=== PATIENT | female | born 1950 | race Caucasian/White ===

== ENCOUNTER → 2016-10-07 | Outpatient (CLI) | payer MEDICARE, OTHER ==
[~2016-10-07] MED LIST: CETI10CA PO; FLUT16SP22 NSEACH; GUAI177L6 PO; HYDR1TAB PO; LEVO88TA26 PO; LISI1TAB PO; LISINOPRIL; MNTL10T PO; RT-ALBUINH IH; SYNTHROID
--- NOTE | 2016-10-07 12:04 | Diagnostic Imaging Report ---
PROCEDURE: CT abdomen and pelvis without contrast. TECHNIQUE: Multiple contiguous axial images were obtained through the abdomen and pelvis without the use of intravenous contrast. INDICATION: Right lower quadrant pain. FINDINGS: The lung bases appear clear. The liver, the gallbladder, the pancreas, and adrenals appear unremarkable. There is no hydronephrosis in either kidney. No urinary tract stone is seen. There is suggestion of prior hysterectomy. Correlate with surgical history. There is diverticulosis. No diverticulitis. There is an adnexal cystic lesion measuring 6.5 x 4.6 x 6.3 cm. It has well defined margins with no obvious solid component although this would be better evaluated with ultrasound or an enhanced exam. There is evidence of prior ventral hernia repair. There is diastases of the recti with abdominal wall laxity noted. The abdominal aorta is normal in caliber. No para-aortic significantly enlarged lymph node is seen. No significant free fluid or fluid collection in the abdomen or pelvis noted. Osseous structures demonstrate mild degenerative changes of the SI joints. IMPRESSION: 1. Diverticulosis. No diverticulitis. 2. Diastasis of the recti with abdominal wall laxity. 3. A 6.5 cm left adnexal lesion with fluid attenuation and no obvious solid component. Further evaluation with pelvic ultrasound is recommended. This may relate to a simple cyst or low-grade cystic neoplasm of the left ovary. Dictated by: Dictated on workstation # [id number]
== END ==
LOC: RAD 09:59
PROVIDERS: ATTEND Family Medicine
DX: R10.31 Right lower quadrant pain (principal); R10.32 Left lower quadrant pain
CPT/HCPCS: 74176

== ENCOUNTER → 2016-10-15 | Outpatient (CLI) | payer MEDICARE, OTHER ==
--- NOTE | 2016-10-15 19:23 | Diagnostic Imaging Report ---
EXAMINATION: Transabdominal and transvaginal pelvic ultrasound. INDICATION: Left adnexal cystic mass. FINDINGS: The uterus has been surgically removed. The left adnexa demonstrates a simple-appearing cystic lesion measuring 6.5 x 5.1 x 6.3 cm with no solid component seen. No definitive ovarian tissue is identified. This could be arising from the left ovary or other left pelvic structures. The right ovary is obscured by bowel gas. IMPRESSION: A 6.5 cm simple-appearing adnexal cystic lesion with no solid component identified. Followup ultrasound in six months is recommended to ensure stability. Dictated by: Dictated on workstation # [id number]
== END ==
LOC: RAD 14:35
PROVIDERS: ATTEND Family Medicine
DX: N83.202 Unspecified ovarian cyst, left side (principal)
CPT/HCPCS: 76830; 76856

== ENCOUNTER → 2016-10-21 | Outpatient (CLI) | payer MEDICARE, OTHER ==
--- NOTE | 2016-10-21 12:11 | Diagnostic Imaging Report ---
INDICATION: Low back pain. Lumbar spine FINDINGS: AP and lateral views of lumbar spine show normal vertebral body height and alignment. There is very slight retrolisthesis of L1 on L2 and L2 on L3. There are no compression fractures. IMPRESSION: Minimal degenerative changes in the lumbar spine. No acute abnormalities seen. Dictated by: Dictated on workstation # [id number]
== END ==
LOC: RAD 11:29
PROVIDERS: ATTEND Family Medicine
DX: M54.5 Low back pain (principal)
CPT/HCPCS: 72100

== ENCOUNTER → 2017-01-14 | Outpatient (CLI) | payer MEDICARE, OTHER ==
--- NOTE | 2017-01-14 19:22 | Diagnostic Imaging Report ---
Transabdominal and transvaginal pelvic ultrasound. INDICATION: Left pelvic pain. FINDINGS: The uterus has been surgically removed. There is normal appearance of the urinary bladder. Previously seen left adnexal cyst is not demonstrated at this time, potentially removed or obscured by bowel loops. IMPRESSION: The previously seen cystic lesion in the left adnexa is not visualized. It is possibly resolved or obscured by overlying bowel gas. Dictated by: Dictated on workstation # [id number]
== END ==
LOC: RAD 11:13
PROVIDERS: ATTEND Obstetrics & Gynecology
DX: R10.2 Pelvic and perineal pain (principal)
CPT/HCPCS: 76830; 76856

== ENCOUNTER → 2017-01-25 | Outpatient (CLI) | payer MEDICARE, OTHER ==
--- NOTE | 2017-01-25 17:34 | Diagnostic Imaging Report ---
US NON OB PELVIS COMP/TRANSVAG TECHNIQUE: Transabdominal and transvaginal grayscale, color Doppler and pulse duplex imaging of the pelvis was performed. INDICATION: Surveillance of left adnexal cyst. COMPARISON: 01/14/2017 and 10/15/2016. FINDINGS: Status post hysterectomy. Right ovary is not visualized due to obscuration of surrounding bowel gas. There is a well-circumscribed predominantly anechoic cyst in the left adnexa which measures 6.3 x 5.2 x 5.6 cm. This is not significantly changed since ultrasound of 10/15/2016. Due to surrounding bowel gas, it is difficult to fully ascertain if this cystic lesion is purely cystic or may have a few low-level internal echoes. IMPRESSION: 1. Stable size of left adnexal cystic mass measuring up to 6.3 cm. Given patient's age, this may represent a serous cystadenoma or other benign cyst. Dictated by: Dictated on workstation # [id number]
== END ==
LOC: RAD 16:47
PROVIDERS: ATTEND Obstetrics & Gynecology
DX: N83.202 Unspecified ovarian cyst, left side (principal)
CPT/HCPCS: 76830; 76856

== ENCOUNTER 2017-02-11 10:09 | Outpatient (RCR) | payer MEDICARE, OTHER | END 2017-03-17 09:21 | disposition home or self-care (01) | DX: M25.559 Pain in unspecified hip (principal) ==

== ENCOUNTER → 2017-06-28 | Outpatient (CLI) | payer MEDICARE, OTHER ==
--- NOTE | 2017-06-28 11:29 | Diagnostic Imaging Report ---
Transabdominal and transvaginal pelvic ultrasound. INDICATION: Followup left adnexal cystic mass. COMPARISON: 01/25/2017. FINDINGS: There is a 5.7 x 4.6 x 4.6-cm left adnexal cystic lesion seen which appears to have no internal vascularity with color Doppler and no significant rotation or solid component. The margins are lobulated. It is not seen transvaginally at this time, due to bowel gas obscuring it. This is probably arising from the left ovary although the left ovary itself is not seen. The right ovary is not seen. The hysterectomy bed demonstrates no definite abnormality. When compared to 01/25/2017, it is slightly smaller compared to prior measurements. IMPRESSION: Left adnexal cystic lesion measuring 5.7 cm minimally smaller compared to the previous exam. Dictated by: Dictated on workstation # [id number]
== END ==
LOC: RAD 09:54
PROVIDERS: ATTEND Obstetrics & Gynecology
DX: N85.8 Other specified noninflammatory disorders of uterus (principal)
CPT/HCPCS: 76830; 76856

== ENCOUNTER 2018-01-07 06:50 | Day surgery (SDC) | payer MEDICARE, OTHER ==
[~2018-01-07] VITALS: Ht 154.9 cm; Wt 90.7 kg
[~2018-01-07 06:50] MED LIST changes: +CETI10TA17 PO; +GARL100T PO; +LEVO88TA54 PO; +LISI1TAB8 PO; +MONT10TA24 PO; +OMEG1CAP58 PO; +POTA10CA68 PO
[2018-01-07 07:05] VITALS: BP 128/84
[2018-01-07] MEDS: PHENYLEPHRINE 10% OPHTH (NEO-SYN) 5 ML BTL OU PRN ×3 (07:06→07:13)
[2018-01-07] MEDS: TETRACAINE 0.5% OPHTH SOLN 4 ML BTL (SINGLE DOSE ONLY) OU PRN ×3 (07:06→07:13)
[2018-01-07] MEDS: TROPICAMIDE 1% OPH SOLN (MYDRIACYL) 15 ML BTL OU PRN ×3 (07:06→07:13)
[2018-01-07 08:05] VITALS: BP 128/84
--- NOTE | 2018-01-07 08:26 | Ophthalmologist Pre-Op Note ---
Pre-Operative Progress Note H&P Reviewed The H&P was reviewed, patient examined and no changes noted. Date H&P Reviewed: Jan 07, 2018 Time H&P Reviewed: 07:30 Pre-Op Dx Secondary Cataract, Right Eye ESTRELLA JAY MD Jan 07, 2018 08:26
--- NOTE | 2018-01-07 08:27 | Ophthalmology Operative Report ---
YAG Capsulotomy PREOPERATIVE DIAGNOSIS: Secondary Cataract Right Eye POSTOPERATIVE DIAGNOSIS: Secondary Cataract Right Eye PROCEDURE: YAG Capsulotomy, right eye SURGEON: Bolivar Jay ANESTHESIA: Topical anesthesia COMPLICATIONS: None ESTIMATED BLOOD LOSS: Minimal DESCRIPTION OF PROCEDURE: After proper informed consent was obtained, the patient's, a 67 female, right eye received one drop of Tropicamide and one drop of Tetracaine. The patient was then placed at the YAG laser and using a power of [3.2 ] millijoules and [ 21 ] bursts were used to fashion a central capsulotomy. The patient tolerated the procedure well without complications and the patient's pressure was [ 17] shortly after the laser. BOLIVAR JAY MD Jan 07, 2018 08:27
== END 2018-01-07 08:05 | disposition home or self-care (01) ==
LOC: SDC 06:50
PROVIDERS: ATTEND Specialist
DX: H26.40 Unspecified secondary cataract (principal)

== ENCOUNTER 2019-01-30 20:30 | Outpatient (CLI) | payer MEDICARE, OTHER | END 2019-01-31 06:20 | disposition home or self-care (01) | LOC: SLEEP 20:30 | PROVIDERS: ATTEND Family Medicine | DX: G47.33 Obstructive sleep apnea (adult) (pediatric) (principal); I10 Essential (primary) hypertension | CPT/HCPCS: 95810 ==

== ENCOUNTER → 2019-03-27 | Outpatient (CLI) | payer MEDICARE, OTHER ==
--- NOTE | 2019-03-27 13:55 | Diagnostic Imaging Report ---
CHEST PA/LAT (2 VIEW) Indication: Dyspnea, thoracic pain Comparison: 12/15/2013 Findings: No pulmonary mass or consolidation. No pleural effusion or pneumothorax. Normal heart size and mediastinal contours. No compression deformity within the thoracic spine. Impression: No acute cardiopulmonary process. Dictated by: Dictated on workstation # [id number]
[2019-03-27 13:59] LABS: WHITE BLOOD COUNT 8.7 10^3/uL (4.3-11.0)
[2019-03-27 14:00] LABS: BASOPHILS # (AUTO) 0.1 10^3/uL (0.0-0.1); BASOPHILS % (AUTO) 1 % (0-10); EOSINOPHILS # (AUTO) 0.1 10^3/uL (0.0-0.3); EOSINOPHILS % (AUTO) 2 % (0-10); HEMATOCRIT 46 % (35-52); HEMOGLOBIN 15.7 G/DL (11.5-16.0); LYMPHOCYTES % (AUTO) 35 % (12-44); MEAN CORPUSCULAR HEMOGLOBIN 31 PG (25-34); MEAN CORPUSCULAR HGB CONC 34 G/DL (32-36); MEAN CORPUSCULAR VOLUME 90 FL (80-99); MEAN PLATELET VOLUME 11.7 FL (7.4-10.4); MONOCYTES # (AUTO) 0.5 X 10^3 (0.0-1.0); MONOCYTES % (AUTO) 6 % (0-12); NEUTROPHILS % (AUTO) 57 % (42-75); PLATELET COUNT 214 10^3/uL (130-400); RED CELL DISTRIBUTION WIDTH 13.1 % (10.0-14.5)
[2019-03-27 14:24] LABS: ALANINE AMINOTRANSFERASE 28 U/L (0-55); ALBUMIN 4.3 GM/DL (3.2-4.5); ALKALINE PHOSPHATASE 67 U/L (40-136); BILIRUBIN,TOTAL 0.6 MG/DL (0.1-1.0); BUN/CREATININE RATIO 18; CALCIUM 9.6 MG/DL (8.5-10.1); CARBON DIOXIDE 25 MMOL/L (21-32); CHLORIDE 107 MMOL/L (98-107); CREATININE SERUM 0.74 MG/DL (0.60-1.30); GFR ESTIMATED > 60; GLUCOSE 86 MG/DL (70-105); POTASSIUM 3.4 MMOL/L (3.6-5.0); SODIUM 142 MMOL/L (135-145); TOTAL PROTEIN 7.3 GM/DL (6.4-8.2)
--- NOTE | 2019-03-27 14:50 | Diagnostic Imaging Report ---
INDICATION: Hip pain, right greater than left. TIME OF EXAM: 1:41 p.m. An AP view of the pelvis and multiple views of the bilateral hips were obtained. FINDINGS: Femoroacetabular alignment is normal bilaterally. There is superior joint space narrowing bilaterally compatible with degenerative change. Mild spurring of the superolateral aspects of acetabula is noted bilaterally as well. Both femoral heads and necks are intact. No fractures are seen. The rami are unremarkable. There is some sclerosis of the symphysis consistent with osteitis pubis. IMPRESSION: Mild degenerative changes of bilateral hips. No acute bony abnormality is seen. Note is made of osteitis pubis. Dictated by: Dictated on workstation # [id number]
== END ==
LOC: RAD 13:13
PROVIDERS: ATTEND Family Medicine
DX: M16.0 Bilateral primary osteoarthritis of hip (principal); M54.6 Pain in thoracic spine; R06.00 Dyspnea, unspecified
CPT/HCPCS: 36415; 71046; 73523; 80053; 85025; 85379; 93005

== ENCOUNTER → 2020-02-28 | Outpatient (CLI) | payer MEDICARE, OTHER ==
[~2020-02-28] MED LIST changes: +LISI1TAB25 PO; -LISI1TAB8 PO; -MONT10TA24 PO; +MONT10TA26 PO
--- NOTE | 2020-03-01 08:11 | Diagnostic Imaging Report ---
PATIENT: Peri Gonzalez : 1950 EXAMINATION: Sacroiliac x-rays 02/28/2020, 2:13 PM. FINDINGS: Multiple views of the sacroiliac joints were obtained. No sclerosis is seen. No ankylosis or osseous erosive changes are seen. IMPRESSION: No acute abnormality is detected. Dictated by: Dictated on workstation # [id number]
--- NOTE | 2020-03-01 08:12 | Diagnostic Imaging Report ---
PATIENT: Peri Gonzalez : 1950 EXAMINATION: Lumbar spine, 2 views on 02/28/2020 at 2:17 PM. INDICATION: Left hip pain for 3-4 weeks. COMPARISON: Prior lumbar spine radiographs from 10/21/2016. FINDINGS: Curvature and alignment of the lumbar spine is normal. There is some slight superior endplate compression involving L2 vertebral body. This was not present on the exam from 2017 but acuity is indeterminate. Remaining lumbar vertebrae show normal stature. Disc spaces are fairly well preserved. IMPRESSION: Superior endplate compression L2 vertebral body, age indeterminate. MRI lumbar spine may be useful to evaluate acuity. Dictated by: Dictated on workstation # [id number]
== END ==
LOC: RAD 13:49
PROVIDERS: ATTEND Nurse Practitioner Family
DX: M48.56XA Collapsed vertebra, not elsewhere classified, lumbar region, initial encounter for fracture (principal)
CPT/HCPCS: 72100; 72202

== ENCOUNTER 2020-03-06 11:36 | Day surgery (SDC) | payer MEDICARE, OTHER ==
[~2020-03-06] VITALS: Ht 154.9 cm; Wt 95.3 kg
[2020-03-06 11:00] VITALS: BP 138/99
[2020-03-06] MEDS ORDERED: LACTATED RINGERS 1,000 ML IV ONE (11:40)
[2020-03-06] MEDS ORDERED: LIDOCAINE JELLY 2% 6 ML SYRINGE MM PRN (11:45)
[2020-03-06] MEDS ORDERED: LACTATED RINGERS 1,000 ML IV STA (11:45)
[2020-03-06] MEDS ORDERED: HURRICAINE EXT TUBE (BENZOCAINE) XX ONE (12:15)
[2020-03-06] MEDS ORDERED: MIDAZOLAM 2 MG/2 ML (VERSED) VIAL ONE (12:46)
[2020-03-06] MEDS ORDERED: PROPOFOL INJECTION 50 ML IV ONE (12:47)
[2020-03-06 13:35] VITALS: BP 140/68
[2020-03-06 13:40] VITALS: BP 140/68
--- NOTE | 2020-03-06 14:02 | Anesthesia-General Post-Op ---
MAC Patient Condition Mental Status/LOC: Same as Preop Cardiovascular: Satisfactory Nausea/Vomiting: Absent Respiratory: Satisfactory Pain: Controlled Complications: Absent Post Op Complications Complications None Follow Up Care/Instructions Patient Instructions None needed. Anesthesiology Discharge Order Discharge Order Patient is doing well, no complaints, stable vital signs, no apparent adverse anesthesia problems. No complications reported per nursing. NEISHA CABRERA CRNA Mar 06, 2020 14:02
[2020-03-06] MEDS ORDERED: SUCR1TAB36 PO (14:03)
[2020-03-06] MEDS ORDERED: PANT40SU PO (14:03)
[2020-03-06 14:23] VITALS: BP 140/68
--- NOTE | 2020-03-08 05:41 | OPERATIVE REPORT ---
DATE OF SERVICE: 03/06/2020 PREOPERATIVE DIAGNOSIS: Dysphagia. POSTOPERATIVE DIAGNOSES: Esophageal stricture, hiatal hernia, duodenal diverticulum. PROCEDURE: EGD with dilatation to 15 mm of esophagus. SURGEON: Edwige Benavides DO ANESTHESIA: Per [employer]. ESTIMATED BLOOD LOSS: Scant. COMPLICATIONS: None. INDICATIONS: The patient is a 69-year-old female who has had difficulty swallowing and sensation of a food bolus in the esophagus for approximately 3 days. She was having trouble swallowing. She is having to spit up her secretions; however, this part has resolved, but she still has the sensation. She understands risks and benefits of procedure and wished to proceed with procedure. Consent was signed in the chart. DESCRIPTION OF PROCEDURE: The patient was taken to the endoscopy suite, placed in left lateral recumbent position. Timeout was performed. Scope was inserted into the mouth, down the esophagus, which demonstrated narrowing in the distal esophagus. Scope was easily passed through this area into the stomach and into the duodenum without difficulty. Second portion of duodenum, diverticulum was noted to widely patent. Scope was then slowly retracted back. There were no polyps, masses or ulcerations within the duodenum, first and second portion. Once in the stomach, it was further insufflated. There were no polyps, masses or ulcerations, no erythematous changes. Scope was retroflexed noting small hiatal hernia, no other pathology. Scope was returned to its normal position, slowly withdrawn to distal esophagus where the stricture was. A balloon was inserted and a serial dilation from the 12 to 15 mm was performed and then had a scant amount of bleeding present. Therefore, further dilatation was stopped at that point. Scope was then slowly retracted back until completely removed, noting no other pathology. The patient tolerated procedure well without any complications. She was taken to recovery room in stable condition. RECOMMENDATIONS: The patient likely repeat endoscopy and possible dilatation approximately 6 weeks. We will start on Protonix and Carafate. We would recommend staying on clear liquid diet for 2 days and then slowly advancing as tolerates. Any issues before that be seen at that time. Job ID: [id number] DocumentID: [id number] Dictated Date: 03/07/2020 20:06:47 [employer] Date: 03/08/2020 05:40:18 Dictated By: EDWIGE BENAVIDES DO
== END 2020-03-06 14:30 | disposition home or self-care (01) ==
LOC: ENDO 11:36
PROVIDERS: ATTEND Surgery
DX: K22.2 Esophageal obstruction (principal); K44.9 Diaphragmatic hernia without obstruction or gangrene; K57.10 Diverticulosis of small intestine without perforation or abscess without bleeding; E03.9 Hypothyroidism, unspecified; I10 Essential (primary) hypertension; Z79.890 Hormone replacement therapy; Z79.899 Other long term (current) drug therapy; Z20.828 Contact with and (suspected) exposure to other viral communicable diseases
CPT/HCPCS: 43249; U0002; 87635

== ENCOUNTER → 2020-03-14 | Outpatient (CLI) | payer MEDICARE, OTHER ==
[~2020-03-14] MED LIST changes: -LISI1TAB25 PO; +LISI1TAB46 PO; +PANT40SU PO; +SUCR1TAB36 PO
--- NOTE | 2020-03-14 16:11 | Diagnostic Imaging Report ---
PROCEDURE: MRI lumbar spine. TECHNIQUE: Multiplanar, multisequence MRI of the lumbar spine was performed without contrast. INDICATION: Back pain COMPARISON: There are no prior MRI lumbar spine examinations available for comparison. The plain film examination of the lumbar spine performed on 02/28/2020 did note a mild compression deformity involving the anterior half of the superior endplate of L2. The age of this injury was indeterminate. On this exam, that finding is again evident. There is a very small area of altered signal along the compressed anterior superior endplate of L2. This may be related to mild bone edema from a subacute compression deformity. There is no sign of a retropulsed fragment and there is no evidence for spinal stenosis or neural foraminal narrowing at this level. There is also a mild (10-20%) compression deformity of the superior endplate of L3. This injury appears to be chronic in nature. The other lumbar vertebral heights are within normal limits. The intervertebral spaces are fairly well-maintained although there is desiccation of the discs at every level. The thecal sac is relatively generous. There is no sign of spinal stenosis or of nerve root encroachment at any level. There is no paraspinal mass noted. IMPRESSION: 1. There is a small area of altered signal along the compressed anterior superior endplate of L2. This suggests mild bone edema and indicates that this injury may be subacute in nature. 2. There is no other abnormal signal arising from the osseous structures to indicate an acute bony abnormality although there does appear to be a long-standing 10-20% compression fracture of the superior endplate of L3. 3. There is no evidence of spinal stenosis or nerve root encroachment at any level. Dictated by: Dictated on workstation # [id number]
== END ==
LOC: RAD 11:36
PROVIDERS: ATTEND Family Medicine
DX: M48.56XA Collapsed vertebra, not elsewhere classified, lumbar region, initial encounter for fracture (principal); Z20.828 Contact with and (suspected) exposure to other viral communicable diseases
CPT/HCPCS: 72148